=== PATIENT | female | born 1990 | race Native Hawaiian/Other Pacific Islander ===

== ENCOUNTER 2019-07-07 18:36 | Emergency (ER) | payer OTHER ==
[~2019-07-07] VITALS: Ht 162.6 cm; Wt 81.6 kg
[2019-07-07 18:50] VITALS: TEMP 98
[2019-07-07 19:25] LABS: PLATELET COUNT 409 K/uL (152-353)
[2019-07-07 19:38] LABS: POTASSIUM 3.5 mmol/L (3.6-5.2)
[2019-07-07 21:05] VITALS: BP 126/83
== END 2019-07-07 21:08 | disposition home or self-care (01) ==
LOC: ED 18:36
PROVIDERS: Family Medicine
DX: M62.830 Muscle spasm of back (principal); R10.84 Generalized abdominal pain
CPT/HCPCS: 80053; 80307; 81000; 81025; 82150; 83605; 83690; 85027; 85651; 96360; 96375; 99284; J1885; J2550

== ENCOUNTER 2020-05-31 23:07 | Emergency (ER) | payer OTHER ==
[~2020-05-31] VITALS: Ht 162.6 cm; Wt 85.3 kg
[2020-06-01 01:17] VITALS: BP 109/65; TEMP 97.9
== END 2020-06-01 01:17 | disposition home or self-care (01) ==
LOC: ED 23:07
DX: N76.0 Acute vaginitis (principal); Z90.711 Acquired absence of uterus with remaining cervical stump
CPT/HCPCS: 81000; 87086; 87088; 87210; 87490; 87590; 96372; 99284; J1885